=== PATIENT | female | born 2000 | race Caucasian/White ===

== ENCOUNTER 2024-10-14 18:31 | Emergency (ER) | payer OTHER ==
[~2024-10-14] VITALS: Ht 154.9 cm; Wt 81.8 kg
[2024-10-14 20:48] LABS: RED BLOOD CELL COUNT(AUTO) 4.60 MIL/uL (4.00-5.20); RED CELL DISTRIBUTION WIDTH 13.6 % (11.5-14.5); WHITE BLOOD COUNT (AUTO) 15.4 K/uL (4.5-11.0)
[2024-10-14 20:50] LABS: CALCIUM, TOTAL 9.1 mg/dL (8.8-10.5); CREATININE 0.50 mg/dL (0.60-1.30); GLOMERULAR FILTR. RATE CALC > 60 mL/min (>60); GLUCOSE,RANDOM 107 mg/dL (70-110); SODIUM SERUM 135 mmol/L (136-145); UREA NITROGEN, BLOOD 4 mg/dL (7-18)
[2024-10-14 21:07] LABS: ASPARTATE AMINOTRANSFERASE 23.0 U/L (15-37); TOTAL PROTEIN, SERUM 7.7 g/dL (6.4-8.2)
[2024-10-14 21:11] LABS: PLATELET COUNT (AUTO) 157 K/uL (150-450)
[2024-10-14] MEDS: SODIUM CHLORIDE 0.9% 1,000 ML IV ONE (21:31)
[2024-10-14] MEDS: ONDANSETRON HCL 4 MG/2 ML VIAL IVP ONE (21:36)
[2024-10-15] MEDS ORDERED: CEPH-558 PO (00:57)
[2024-10-15] MEDS ORDERED: AZIT-167 PO (00:57)
[2024-10-15] MEDS: FentaNYL CITRATE PF 100 MCG/2 ML VIAL IVP ONE (01:07)
[2024-10-15] MEDS: AZITHROMYCIN 500 MG/NS 250 ML IV ONE (01:07)
[2024-10-15] MEDS: CefTRIAXone 1 GM/DEXTROSE 50 ML IV ONE (01:08)
[2024-10-15 02:00] VITALS: BP 129/90; PULSE 106; RESP 20; TEMP 99; O2SAT 99
== END 2024-10-15 04:33 | disposition home or self-care (01) ==
LOC: EMS 18:31
DX: J98.4 Other disorders of lung (principal); R10.2 Pelvic and perineal pain; R11.2 Nausea with vomiting, unspecified; Z91.041 Radiographic dye allergy status; Z90.49 Acquired absence of other specified parts of digestive tract
CPT/HCPCS: 99285; 74176; 76700; 96375 ×2; 96361; 80048; 80076; 83690; 84702; 85025; 36415; 96365; 96368; J1171; J2405; J0456; J0696; J3010